=== PATIENT | female | born 1960 | race Caucasian/White ===

== ENCOUNTER → 2017-01-22 | Outpatient (REF) | payer OTHER ==
[~2017-01-22] MED LIST: AUGM875T27 PO; CIPR500T89 PO; FLAG500T PO; MULTCAP PO; PRIL40CA PO
[2017-01-22 18:28] LABS: FOLATE 7.6 NG/ML (>5.4); VITAMIN B12 LEVEL 447 PG/ML (247-911)
[2017-01-22 18:36] LABS: ALBUMIN 3.4 GM/DL (3.2-5.2); ALKALINE PHOSPHATASE 90 U/L (45-117); ALT/SGPT 19 U/L (12-78); ANION GAP 8 MEQ/L (8-16); AST/SGOT 16 U/L (15-37); BILIRUBIN,TOTAL 0.6 MG/DL (0.2-1.0); BLOOD UREA NITROGEN 13 MG/DL (7-18); CALCIUM LEVEL 8.2 MG/DL (8.5-10.1); CARBON DIOXIDE LEVEL 28 MEQ/L (21-32); CHLORIDE LEVEL 108 MEQ/L (98-107); CHOLESTEROL LEVEL 203 MG/DL (<200); CREATININE FOR GFR 0.91 MG/DL (0.55-1.02); FERRITIN 11 NG/ML (8-252); GLOMERULAR FILTRATION RATE > 60.0 (>51); GLUCOSE, FASTING 87 MG/DL (70-105); MAGNESIUM LEVEL 2.4 MG/DL (1.8-2.4); POTASSIUM SERUM 4.3 MEQ/L (3.5-5.1); SODIUM LEVEL 144 MEQ/L (136-145); TOTAL PROTEIN 6.8 GM/DL (6.4-8.2); TRIGLYCERIDES LEVEL 92 MG/DL (<150)
== END ==
LOC: M SFHCCLAY 10:39
PROVIDERS: ATTEND Nurse Practitioner Family
DX: Z98.84 Bariatric surgery status (principal); E78.4 Other hyperlipidemia; R53.83 Other fatigue

== ENCOUNTER → 2017-01-29 | Outpatient (CLI) | payer OTHER ==
--- NOTE | 2017-02-02 14:49 | REPMRS ---
Patient History The patient states she has not had a clinical breast exam in over a year. Patient had first child at age 34. Family history of breast cancer in mother at age 40. Digital Mammo Screening Bilat: January 29, 2017 - Exam #: [id number] Bilateral CC and MLO view(s) were taken. Technologist: Paris Murrell, Technologist Prior study comparison: 2011, digital bilateral screening mammo, performed at [facility]. FINDINGS: There are scattered fibroglandular densities. There has been no change in the appearance of the mammogram from the prior studies. There is a mild amount of residual fibroglandular tissue which is fairly symmetric. There is no interval development of dominant mass, architectural distortion, or clustered microcalcification suggestive of malignancy. ASSESSMENT: BI-RADS/ACR category 1 mammogram. Negative. Recommendation Routine screening mammogram in 1 year (for women over age 40). This mammogram was interpreted with the aid of an FDA-approved computer-aided dectection system. Electronically Signed By: Chau Tejeda MD 02/02/17 [id number]
== END ==
LOC: M RAD 12:53
PROVIDERS: ATTEND Advanced Practice Midwife
DX: Z12.31 Encounter for screening mammogram for malignant neoplasm of breast (principal)

== ENCOUNTER → 2017-03-14 | Outpatient (CLI) | payer OTHER ==
[2017-03-14 10:53] LABS: BASO % 0.3 % (0.0-1.0); EOS # 0.1 K/mm3 (0.0-0.50); EOS % 0.9 % (0.0-3.0); LARGE UNSTAINED CELL # 0.1 K/mm3 (0.0-0.4); LARGE UNSTAINED CELL % 1.1 % (0.0-4.0); LYMPH # 1.3 K/mm3 (1.5-4.5); MEAN CORPUSCULAR HEMOGLOBIN 29.9 pg (27.0-33.0); MEAN CORPUSCULAR HGB CONC 34.2 g/dl (32.0-36.5); MEAN CORPUSCULAR VOLUME 87.5 fl (80.0-96.0); MONO # 0.3 K/mm3 (0.0-0.8); MONO % 4.1 % (0.0-5.0); NEUTROPHILS # 4.9 K/mm3 (1.8-7.7); NEUTROPHILS % 74.5 % (36.0-66.0); PLATELET COUNT, AUTOMATED 199 k/mm3 (150-450); RED CELL DISTRIBUTION WIDTH 13.7 % (11.5-14.5); WHITE BLOOD COUNT 6.6 K/mm3 (4.0-10.0)
[2017-03-14 11:01] LABS: ALT/SGPT 20 U/L (12-78); AST/SGOT 15 U/L (15-37)
--- NOTE | 2017-03-14 11:31 | REP ---
LUMBOSACRAL SPINE SERIES: Five views of the lumbosacral spine performed. There is no compression fracture or malalignment with normal lumbar lordosis. No spondylolysis or spondylolisthesis is noted. There is mild diffuse spurring. There is not significant disc space narrowing. There is sclerosis at the posterior facet joints at L5-S1. There is mild curvature toward the left. The posterior elements appear intact. Metallic clips are seen in the abdomen. IMPRESSION: Mild degenerative changes as above. Signed by Chau Tejeda MD 03/14/2017 01:42 P
[2017-03-14 12:20] LABS: ERYTHROCYTE SEDIMENTATION RATE 22 mm/hr (0-30)
[2017-03-16 00:55] LABS: Lyme Disease IgG/IgM Antibodie <0.91 ISR (0.00-0.90); Lyme Disease IgM Ab Quantitati <0.80 index (0.00-0.79)
== END ==
LOC: M LAB 09:59
PROVIDERS: ATTEND Internal Medicine Rheumatology
DX: M06.09 Rheumatoid arthritis without rheumatoid factor, multiple sites (principal)

== ENCOUNTER → 2017-05-29 | Outpatient (CLI) | payer OTHER ==
[2017-05-29 20:17] LABS: IMMUNOGLOBULIN G 1320 MG/DL (681-1648); IMMUNOGLOBULIN M 148 MG/DL (40-230)
[2017-05-29 20:52] LABS: IMMUNOGLOBULIN A 17.5 MG/DL (70-400)
[2017-05-29 20:53] LABS: IMMUNOGLOBULIN E < 3.6 IU/ML (<100)
== END ==
LOC: M SMT 15:05
PROVIDERS: ATTEND Allergy & Immunology Allergy
DX: B99.9 Unspecified infectious disease (principal); J30.81 Allergic rhinitis due to animal (cat) (dog) hair and dander

== ENCOUNTER → 2017-08-11 | Outpatient (CLI) | payer OTHER | LOC: M LAB 11:15 | DX: J32.9 Chronic sinusitis, unspecified (principal) ==

== ENCOUNTER → 2017-12-13 | Outpatient (REF) | payer OTHER ==
[2017-12-13 18:41] LABS: BASO % 0.5 % (0.0-1.0); EOS % 0.3 % (0.0-3.0); HEMATOCRIT 43.9 % (36.0-47.0); HEMOGLOBIN 14.4 g/dl (12.0-15.5); IMMATURE GRANULOCYTE % 0.3 % (0-3.0); LYMPH # 1.6 10^3/uL (1.5-4.5); LYMPH % 24.8 % (24.0-44.0); MEAN CORPUSCULAR HEMOGLOBIN 29.6 pg (27.0-33.0); MEAN CORPUSCULAR HGB CONC 32.8 g/dl (32.0-36.5); MEAN CORPUSCULAR VOLUME 90.3 fl (80.0-96.0); MONO # 0.5 10^3/uL (0.0-0.8); MONO % 7.9 % (0.0-5.0); NEUTROPHILS # 4.2 10^3/uL (1.8-7.7); NEUTROPHILS % 66.2 % (36.0-66.0); PLATELET COUNT, AUTOMATED 260 10^3/uL (150-450); RED BLOOD COUNT 4.86 10^6/uL (4.00-5.40); RED CELL DISTRIBUTION WIDTH 13.4 % (11.5-14.5); WHITE BLOOD COUNT 6.3 10^3/uL (4.0-10.0)
[2017-12-13 18:56] LABS: ALBUMIN 3.9 GM/DL (3.2-5.2); ALBUMIN/GLOBULIN RATIO 1.03 (1.00-1.93); ALKALINE PHOSPHATASE 118 U/L (45-117); ALT/SGPT 24 U/L (12-78); ANION GAP 5 MEQ/L (8-16); AST/SGOT 17 U/L (7-37); BILIRUBIN,TOTAL 0.9 MG/DL (0.2-1.0); BLOOD UREA NITROGEN 14 MG/DL (7-18); CALCIUM LEVEL 8.5 MG/DL (8.5-10.1); CARBON DIOXIDE LEVEL 30 MEQ/L (21-32); CHLORIDE LEVEL 108 MEQ/L (98-107); CHOLESTEROL LEVEL 227 MG/DL (<200); CHOLESTEROL RISK RATIO 3.603 (<5); CREATININE FOR GFR 0.99 MG/DL (0.55-1.30); FERRITIN 29 NG/ML (8-252); GLOMERULAR FILTRATION RATE > 60.0 (>51); GLUCOSE, FASTING 92 MG/DL (70-100); HDL CHOLESTEROL 63 MG/DL (>40); IRON (FE) 107 UG/DL (50-170); LDL CHOLESTEROL 140.4 MG/DL (<100); MAGNESIUM LEVEL 2.4 MG/DL (1.8-2.4); NON-HDL-C 164 MG/DL; PERCENT SATURATION 27.2 % (13.2-45.0); POTASSIUM SERUM 4.3 MEQ/L (3.5-5.1); SODIUM LEVEL 143 MEQ/L (136-145); TOTAL IRON BINDING CAPACITY 394 UG/DL (250-450); TOTAL PROTEIN 7.7 GM/DL (6.4-8.2); TRIGLYCERIDES LEVEL 118 MG/DL (<150)
[2017-12-13 18:58] LABS: FOLATE 10.5 NG/ML (>5.4); TOTAL 25(OH) VITAMIN D 11.2 NG/ML (30.0-100.0); VITAMIN B12 LEVEL 451 PG/ML (247-911)
== END ==
LOC: M SFHCCLAY 09:30
DX: Z98.84 Bariatric surgery status (principal); E78.4 Other hyperlipidemia

== ENCOUNTER → 2017-12-13 | Outpatient (REF) | payer OTHER ==
[2017-12-13 18:42] LABS: BASO # 0.1 10^3/uL (0.0-0.2); BASO % 0.9 % (0.0-1.0); EOS % 0.4 % (0.0-3.0); HEMATOCRIT 43.3 % (36.0-47.0); IMMATURE GRANULOCYTE % 0.4 % (0-3.0); LYMPH # 1.7 10^3/uL (1.5-4.5); LYMPH % 25.4 % (24.0-44.0); MEAN CORPUSCULAR HEMOGLOBIN 29.2 pg (27.0-33.0); MEAN CORPUSCULAR HGB CONC 32.3 g/dl (32.0-36.5); MEAN CORPUSCULAR VOLUME 90.4 fl (80.0-96.0); MONO # 0.5 10^3/uL (0.0-0.8); MONO % 6.9 % (0.0-5.0); NEUTROPHILS # 4.4 10^3/uL (1.8-7.7); PLATELET COUNT, AUTOMATED 265 10^3/uL (150-450); RED BLOOD COUNT 4.79 10^6/uL (4.00-5.40); RED CELL DISTRIBUTION WIDTH 13.4 % (11.5-14.5); WHITE BLOOD COUNT 6.7 10^3/uL (4.0-10.0)
[2017-12-13 18:58] LABS: ALBUMIN 3.8 GM/DL (3.2-5.2); ALT/SGPT 25 U/L (12-78); AST/SGOT 16 U/L (7-37); C REACTIVE PROTEIN QUANTITATIV 0.31 MG/DL (0.00-0.30); CREATININE FOR GFR 0.96 MG/DL (0.55-1.30); GLOMERULAR FILTRATION RATE > 60.0 (>51); THYROID STIMULATING HORMONE 0.933 uIU/ML (0.358-3.740)
[2017-12-13 19:06] LABS: ERYTHROCYTE SEDIMENTATION RATE 20 mm/hr (0-30)
== END ==
LOC: M LABDRAWC 17:25
DX: M06.09 Rheumatoid arthritis without rheumatoid factor, multiple sites (principal); R53.83 Other fatigue

== ENCOUNTER → 2017-12-24 | Outpatient (REF) | payer OTHER | LOC: M SFHCCLAY 15:22 | DX: R19.7 Diarrhea, unspecified (principal) ==

== ENCOUNTER → 2018-01-25 | Outpatient (CLI) | payer OTHER | LOC: M RAD 14:25 | DX: M47.892 Other spondylosis, cervical region (principal) ==

== ENCOUNTER → 2018-05-01 | Outpatient (REF) | payer OTHER ==
[2018-05-01 17:11] LABS: ALBUMIN 3.6 GM/DL (3.2-5.2); ALBUMIN/GLOBULIN RATIO 1.03 (1.00-1.93); ALKALINE PHOSPHATASE 77 U/L (45-117); ALT/SGPT 28 U/L (12-78); AST/SGOT 23 U/L (7-37); BILIRUBIN,DIRECT 0.2 MG/DL (0.0-0.2); BILIRUBIN,TOTAL 1.2 MG/DL (0.2-1.0); CHOLESTEROL LEVEL 223 MG/DL (<200); HDL CHOLESTEROL 50 MG/DL (>40); LDL CHOLESTEROL 136 MG/DL (<100); NON-HDL-C 173 MG/DL; TOTAL PROTEIN 7.1 GM/DL (6.4-8.2); TRIGLYCERIDES LEVEL 183 MG/DL (<150)
[2018-05-01 17:17] LABS: TOTAL 25(OH) VITAMIN D 33.4 NG/ML (30.0-100.0)
== END ==
LOC: M SFHCCLAY 10:05
DX: E78.49 Other hyperlipidemia (principal); E56.9 Vitamin deficiency, unspecified

== ENCOUNTER → 2018-05-07 | Outpatient (CLI) | payer OTHER | LOC: M CLY 16:05 | DX: R06.02 Shortness of breath (principal) | CPT/HCPCS: 71046 ==

== ENCOUNTER → 2018-05-11 | Outpatient (CLI) | payer OTHER | LOC: M EKG 13:20 | DX: Z01.810 Encounter for preprocedural cardiovascular examination (principal); G56.22 Lesion of ulnar nerve, left upper limb | CPT/HCPCS: 93005 ==

== ENCOUNTER → 2018-06-05 | Outpatient (REF) | payer OTHER ==
[2018-06-05 17:49] LABS: ALBUMIN 3.4 GM/DL (3.2-5.2); ALBUMIN/GLOBULIN RATIO 0.89 (1.00-1.93); ALKALINE PHOSPHATASE 75 U/L (45-117); ALT/SGPT 26 U/L (12-78); AST/SGOT 17 U/L (7-37); BILIRUBIN,DIRECT 0.2 MG/DL (0.0-0.2); BILIRUBIN,TOTAL 0.8 MG/DL (0.2-1.0); CHOLESTEROL LEVEL 162 MG/DL (<200); CHOLESTEROL RISK RATIO 2.892 (<5); HDL CHOLESTEROL 56 MG/DL (>40); LDL CHOLESTEROL 79 MG/DL (<100); NON-HDL-C 106 MG/DL; TOTAL PROTEIN 7.2 GM/DL (6.4-8.2); TRIGLYCERIDES LEVEL 136 MG/DL (<150)
== END ==
LOC: M SFHCCLAY 10:06
DX: I10 Essential (primary) hypertension (principal)
CPT/HCPCS: 80076

== ENCOUNTER → 2018-06-27 | Outpatient (REF) | payer MEDICARE | LOC: M SFHCPLAZ 14:06 | PROVIDERS: ATTEND Internal Medicine Rheumatology | DX: M06.9 Rheumatoid arthritis, unspecified (principal); Z51.81 Encounter for therapeutic drug level monitoring; Z79.899 Other long term (current) drug therapy; Z53.8 Procedure and treatment not carried out for other reasons ==

== ENCOUNTER → 2018-09-02 | Outpatient (CLI) | payer MEDICARE ==
--- NOTE | 2018-09-02 14:36 | REP ---
BILATERAL HANDS, EIGHT VIEWS: HISTORY: Osteoarthritis. RIGHT HAND: There is no acute fracture or dislocation. There is narrowing of the first carpometacarpal joint space with associated osteophyte formation. The remaining joint spaces are normal in appearance. IMPRESSION: Degenerative change as described above. LEFT HAND: There is no acute fracture or dislocation. There is narrowing of the first carpometacarpal joint space with associated osteophyte formation. The remaining joint spaces are normal in appearance. IMPRESSION: Degenerative change as described above. Electronically Signed by Ochoa Gage MD 09/02/2018 02:37 P
--- NOTE | 2018-09-02 14:43 | REP ---
BILATERAL STANDING KNEES, ONE VIEW: HISTORY: Osteoarthritis. There is mild narrowing of the medial right knee joint space. The lateral right knee joint space is normal in appearance. An osteophyte is present on the right tibia. There is moderate narrowing of the medial left knee joint space. The lateral left knee joint space is normal in appearance. Osteophytes are present on the tibia. IMPRESSION: Degenerative change as described above. Electronically Signed by Ochoa Gage MD 09/02/2018 02:57 P
[2018-09-02 14:51] LABS: ALBUMIN 3.4 GM/DL (3.2-5.2); ALT/SGPT 17 U/L (12-78); BASO % 0.5 % (0.0-1.0); BILIRUBIN,TOTAL 0.8 MG/DL (0.2-1.0); BLOOD UREA NITROGEN 13 MG/DL (7-18); C REACTIVE PROTEIN QUANTITATIV 1.03 MG/DL (0.00-0.30); CALCIUM LEVEL 8.1 MG/DL (8.5-10.1); CARBON DIOXIDE LEVEL 30 MEQ/L (21-32); CHLORIDE LEVEL 108 MEQ/L (98-107); CREATININE FOR GFR 0.68 MG/DL (0.55-1.30); EOS % 0.9 % (0.0-3.0); GLOMERULAR FILTRATION RATE > 60.0 (>51); GLUCOSE, FASTING 85 MG/DL (70-100); HEMATOCRIT 40.7 % (36.0-47.0); HEMOGLOBIN 13.1 g/dl (12.0-15.5); LYMPH # 1.8 10^3/uL (1.5-4.5); LYMPH % 40.3 % (24.0-44.0); MEAN CORPUSCULAR HEMOGLOBIN 29.9 pg (27.0-33.0); MEAN CORPUSCULAR HGB CONC 32.2 g/dl (32.0-36.5); MEAN CORPUSCULAR VOLUME 92.9 fl (80.0-96.0); MONO # 0.3 10^3/uL (0.0-0.8); MONO % 7.7 % (0.0-5.0); NEUTROPHILS # 2.2 10^3/uL (1.8-7.7); NEUTROPHILS % 50.4 % (36.0-66.0); PLATELET COUNT, AUTOMATED 156 10^3/uL (150-450); POTASSIUM SERUM 4.4 MEQ/L (3.5-5.1); RED BLOOD COUNT 4.38 10^6/uL (4.00-5.40); RHEUMATOID FACTOR QUANT < 10.0 IU/ML (<15.0); SODIUM LEVEL 140 MEQ/L (136-145); TOTAL PROTEIN 7.1 GM/DL (6.4-8.2); URIC ACID 4.9 MG/DL (2.6-6.0); WHITE BLOOD COUNT 4.4 10^3/uL (4.0-10.0)
--- NOTE | 2018-09-02 15:10 | REP ---
BILATERAL HIPS, AP PELVIS, FIVE VIEWS: HISTORY: Osteoarthritis. RIGHT HIP: There is no acute fracture or dislocation. There is minimal narrowing of the joint space with associated sclerosis. IMPRESSION: Degenerative change as described above. LEFT HIP: There is no acute fracture or dislocation. There is minimal narrowing of the joint space with associated sclerosis. IMPRESSION: Degenerative change as described above. Electronically Signed by Ochoa Gage MD 09/02/2018 03:12 P
[2018-09-02 15:54] LABS: ERYTHROCYTE SEDIMENTATION RATE 33 mm/hr (0-30)
[2018-09-04 09:58] LABS: HEPATITIS B SURFACE ANTIBODY POSITIVE (POSITIVE)
[2018-09-04 10:09] LABS: HEPATITIS B SURFACE ANTIGEN NEGATIVE (NEGATIVE)
[2018-09-05 00:06] LABS: CYCLIC CITRULLINATED PEPTIDE 5 units (0-19); HEPATITIS B CORE ANTIBODY IGG Negative (Negative)
== END ==
LOC: M LAB 12:57
PROVIDERS: ATTEND Internal Medicine Rheumatology
DX: M15.9 Polyosteoarthritis, unspecified (principal); M06.9 Rheumatoid arthritis, unspecified; Z79.899 Other long term (current) drug therapy

== ENCOUNTER → 2019-01-06 | Outpatient (REF) | payer MEDICARE ==
[2019-01-06 16:50] LABS: BASO % 0.5 % (0.0-1.0); EOS % 0.5 % (0.0-3.0); HEMATOCRIT 41.1 % (36.0-47.0); HEMOGLOBIN 13.1 g/dl (12.0-15.5); LYMPH % 34.8 % (24.0-44.0); MEAN CORPUSCULAR HEMOGLOBIN 29.4 pg (27.0-33.0); MEAN CORPUSCULAR HGB CONC 31.9 g/dl (32.0-36.5); MEAN CORPUSCULAR VOLUME 92.2 fl (80.0-96.0); MONO # 0.5 10^3/uL (0.0-0.8); NEUTROPHILS # 3.2 10^3/uL (1.8-7.7); PLATELET COUNT, AUTOMATED 175 10^3/uL (150-450); RED BLOOD COUNT 4.46 10^6/uL (4.00-5.40); WHITE BLOOD COUNT 5.6 10^3/uL (4.0-10.0)
[2019-01-06 16:56] LABS: ALBUMIN 3.5 GM/DL (3.2-5.2); ALT/SGPT 21 U/L (12-78); BILIRUBIN,TOTAL 0.9 MG/DL (0.2-1.0); BLOOD UREA NITROGEN 11 MG/DL (7-18); CALCIUM LEVEL 8.6 MG/DL (8.5-10.1); CARBON DIOXIDE LEVEL 30 MEQ/L (21-32); CHLORIDE LEVEL 108 MEQ/L (98-107); CHOLESTEROL LEVEL 211 MG/DL (<200); CHOLESTEROL RISK RATIO 3.459 (<5); CREATININE FOR GFR 0.89 MG/DL (0.55-1.30); FERRITIN 13 NG/ML (8-252); GLOMERULAR FILTRATION RATE > 60.0 (>51); GLUCOSE, FASTING 82 MG/DL (70-100); HDL CHOLESTEROL 61 MG/DL (>40); IRON (FE) 83 UG/DL (50-170); LDL CHOLESTEROL 127 MG/DL (<100); MAGNESIUM LEVEL 2.2 MG/DL (1.8-2.4); NON-HDL-C 150 MG/DL; PERCENT SATURATION 21.8 % (13.2-45.0); POTASSIUM SERUM 4.2 MEQ/L (3.5-5.1); SODIUM LEVEL 143 MEQ/L (136-145); TOTAL IRON BINDING CAPACITY 380 UG/DL (250-450); TOTAL PROTEIN 7.4 GM/DL (6.4-8.2); TRIGLYCERIDES LEVEL 113 MG/DL (<150)
[2019-01-06 17:03] LABS: TOTAL 25(OH) VITAMIN D 22.8 NG/ML (30.0-100.0); VITAMIN B12 LEVEL 369 PG/ML (247-911)
[2019-01-06 17:04] LABS: FOLATE > 24.0 NG/ML (>5.4)
== END ==
LOC: M SFHCCLAY 10:16
PROVIDERS: ATTEND Nurse Practitioner Family
DX: Z98.84 Bariatric surgery status (principal); I10 Essential (primary) hypertension; E78.49 Other hyperlipidemia; E56.9 Vitamin deficiency, unspecified; Z79.899 Other long term (current) drug therapy

== ENCOUNTER → 2019-01-16 | Outpatient (REF) | payer MEDICARE | LOC: M LAB REF 16:41 | PROVIDERS: ATTEND Surgery | DX: L82.1 Other seborrheic keratosis (principal) ==

== ENCOUNTER → 2019-04-08 | Outpatient (CLI) | payer MEDICARE ==
[2019-04-08 11:41] LABS: BASO % 0.5 % (0.0-1.0); EOS % 0.7 % (0.0-3.0); HEMATOCRIT 39.7 % (36.0-47.0); LYMPH # 1.7 10^3/uL (1.5-5.0); MEAN CORPUSCULAR HEMOGLOBIN 30.3 pg (27.0-33.0); MEAN CORPUSCULAR HGB CONC 32.7 g/dl (32.0-36.5); MEAN CORPUSCULAR VOLUME 92.5 fl (80.0-96.0); MONO # 0.4 10^3/uL (0.0-0.8); NEUTROPHILS # 2.2 10^3/uL (1.5-8.5); NEUTROPHILS % 51.3 % (36.0-66.0); PLATELET COUNT, AUTOMATED 149 10^3/uL (150-450); RED BLOOD COUNT 4.29 10^6/uL (4.00-5.40); WHITE BLOOD COUNT 4.3 10^3/uL (4.0-10.0)
[2019-04-08 12:00] LABS: ALBUMIN 3.4 GM/DL (3.2-5.2); ALT/SGPT 34 U/L (12-78); C REACTIVE PROTEIN QUANTITATIV 1.53 MG/DL (0.00-0.30); CREATININE FOR GFR 0.98 MG/DL (0.55-1.30); GLOMERULAR FILTRATION RATE > 60.0 (>51)
[2019-04-08 12:43] LABS: ERYTHROCYTE SEDIMENTATION RATE 22 mm/hr (0-30)
--- NOTE | 2019-04-08 13:43 | REP ---
REASON: History of rheumatoid arthritis. COMPARISON: 09/02/2018. The prior exam is a standing bilateral AP exam. Although review of the order indicates standing bilateral knees four views of each knee were obtained and although the images are not labeled standing I suspect they were performed that way. There is tricompartmental marginal osteophytosis bilaterally. There is medial compartmental narrowing bilaterally, left greater than right. There is asymmetric patellofemoral joint space narrowing bilaterally. There is no evidence of an acute fracture. IMPRESSION: Chronic changes as described above. Electronically Signed by Rocky Burciaga DO 04/08/2019 02:16 P
== END ==
LOC: M LAB 10:52
PROVIDERS: ATTEND Internal Medicine Rheumatology
DX: M06.9 Rheumatoid arthritis, unspecified (principal); M15.0 Primary generalized (osteo)arthritis; Z79.899 Other long term (current) drug therapy; E78.49 Other hyperlipidemia; E56.9 Vitamin deficiency, unspecified

== ENCOUNTER → 2019-04-08 | Outpatient (CLI) | payer MEDICARE ==
[2019-04-08 12:03] LABS: CHOLESTEROL RISK RATIO 3.15 (<5)
[2019-04-08 12:11] LABS: TOTAL 25(OH) VITAMIN D 51.6 NG/ML (30.0-100.0)
== END ==
LOC: M LAB 10:57
PROVIDERS: ATTEND Nurse Practitioner Family
DX: E78.49 Other hyperlipidemia (principal); E56.9 Vitamin deficiency, unspecified

== ENCOUNTER → 2019-07-08 | Outpatient (REF) | payer MEDICARE ==
[2019-07-08 12:20] LABS: CHOLESTEROL RISK RATIO 2.948 (<5); TOTAL 25(OH) VITAMIN D 36.8 NG/ML (30.0-100.0)
== END ==
LOC: M SFHCCLAY 09:29
PROVIDERS: ATTEND Nurse Practitioner Family
DX: E78.49 Other hyperlipidemia (principal); E56.9 Vitamin deficiency, unspecified

== ENCOUNTER → 2019-09-10 | Outpatient (REF) | payer MEDICARE | LOC: M SFHCCLAY 11:32 | PROVIDERS: ATTEND Nurse Practitioner Family | DX: L03.316 Cellulitis of umbilicus (principal) ==

== ENCOUNTER → 2020-02-16 | Outpatient (REF) | payer MEDICARE ==
[2020-02-16 13:33] LABS: HEMATOCRIT 42.6 % (36.0-47.0); HEMOGLOBIN 13.8 g/dl (12.0-15.5); MEAN CORPUSCULAR HEMOGLOBIN 29.7 pg (27.0-33.0); MEAN CORPUSCULAR HGB CONC 32.4 g/dl (32.0-36.5); MEAN CORPUSCULAR VOLUME 91.8 fl (80.0-96.0); PLATELET COUNT, AUTOMATED 153 10^3/uL (150-450); RED BLOOD COUNT 4.64 10^6/uL (4.00-5.40); WHITE BLOOD COUNT 5.5 10^3/uL (4.0-10.0)
[2020-02-16 14:04] LABS: ALBUMIN 3.6 GM/DL (3.2-5.2); ALT/SGPT 27 U/L (12-78); BILIRUBIN,TOTAL 1.7 MG/DL (0.2-1.0); BLOOD UREA NITROGEN 9 MG/DL (7-18); CALCIUM LEVEL 8.7 MG/DL (8.8-10.2); CARBON DIOXIDE LEVEL 30 MEQ/L (21-32); CHLORIDE LEVEL 107 MEQ/L (98-107); CHOLESTEROL LEVEL 219 MG/DL (<200); CHOLESTEROL RISK RATIO 3.128 (<5); FERRITIN 54 NG/ML (8-252); GLOMERULAR FILTRATION RATE > 60.0 (>45); GLUCOSE, FASTING 65 MG/DL (70-100); HDL CHOLESTEROL 70 MG/DL (>40); IRON (FE) 109 UG/DL (50-170); LDL CHOLESTEROL 134 MG/DL (<100); MAGNESIUM LEVEL 2.1 MG/DL (1.8-2.4); NON-HDL-C 149 MG/DL; PERCENT SATURATION 36.5 % (13.2-45.0); POTASSIUM SERUM 3.9 MEQ/L (3.5-5.1); SODIUM LEVEL 141 MEQ/L (136-145); TOTAL IRON BINDING CAPACITY 299 UG/DL (250-450); TRIGLYCERIDES LEVEL 74 MG/DL (<150)
[2020-02-16 14:11] LABS: FOLATE 23.2 NG/ML (>5.4); TOTAL 25(OH) VITAMIN D 24.5 NG/ML (30.0-100.0); VITAMIN B12 LEVEL 401 PG/ML (247-911)
== END ==
LOC: M LABDRAWC 12:39
PROVIDERS: ATTEND Nurse Practitioner Family
DX: I10 Essential (primary) hypertension (principal); E78.5 Hyperlipidemia, unspecified; D50.9 Iron deficiency anemia, unspecified

== ENCOUNTER → 2020-04-26 | Outpatient (REF) | payer MEDICARE ==
[2020-04-26 11:44] LABS: BASO % 0.7 % (0.0-1.0); EOS % 0.3 % (0.0-3.0); HEMATOCRIT 45.1 % (36.0-47.0); HEMOGLOBIN 14.3 g/dl (12.0-15.5); LYMPH # 2.3 10^3/uL (1.5-5.0); LYMPH % 39.8 % (24.0-44.0); MEAN CORPUSCULAR HEMOGLOBIN 30.2 pg (27.0-33.0); MEAN CORPUSCULAR HGB CONC 31.7 g/dl (32.0-36.5); MEAN CORPUSCULAR VOLUME 95.1 fl (80.0-96.0); MONO # 0.4 10^3/uL (0.0-0.8); MONO % 7.3 % (0.0-5.0); NEUTROPHILS % 51.7 % (36.0-66.0); PLATELET COUNT, AUTOMATED 165 10^3/uL (150-450); RED BLOOD COUNT 4.74 10^6/uL (4.00-5.40); WHITE BLOOD COUNT 5.8 10^3/uL (4.0-10.0)
[2020-04-26 12:39] LABS: ALBUMIN 3.7 GM/DL (3.2-5.2); ALT/SGPT 17 U/L (12-78); BILIRUBIN,TOTAL 0.7 MG/DL (0.2-1.0); BLOOD UREA NITROGEN 9 MG/DL (7-18); CALCIUM LEVEL 9.1 MG/DL (8.8-10.2); CARBON DIOXIDE LEVEL 33 MEQ/L (21-32); CHLORIDE LEVEL 106 MEQ/L (98-107); CHOLESTEROL LEVEL 212 MG/DL (<200); CHOLESTEROL RISK RATIO 3.365 (<5); CREATININE FOR GFR 0.89 MG/DL (0.55-1.30); FERRITIN 22 NG/ML (8-252); FOLATE 21.1 NG/ML (>5.4); FREE THYROXINE INDEX 2.7 % (1.3-4.8); GLOMERULAR FILTRATION RATE > 60.0 (>45); GLUCOSE, FASTING 87 MG/DL (70-100); HDL CHOLESTEROL 63 MG/DL (>40); IRON (FE) 69 UG/DL (50-170); LDL CHOLESTEROL 125 MG/DL (<100); MAGNESIUM LEVEL 2.4 MG/DL (1.8-2.4); NON-HDL-C 149 MG/DL; PERCENT SATURATION 20.8 % (13.2-45.0); POTASSIUM SERUM 4.3 MEQ/L (3.5-5.1); SODIUM LEVEL 142 MEQ/L (136-145); T UPTAKE 34 % (30-39); THYROID STIMULATING HORMONE 0.653 uIU/ML (0.358-3.740); THYROXINE (T4) 7.9 UG/DL (4.5-12.0); TOTAL 25(OH) VITAMIN D 30.6 NG/ML (30.0-100.0); TOTAL IRON BINDING CAPACITY 332 UG/DL (250-450); TOTAL PROTEIN 7.3 GM/DL (6.4-8.2); TRIGLYCERIDES LEVEL 118 MG/DL (<150); VITAMIN B12 LEVEL 337 PG/ML (247-911)
== END ==
LOC: M SFHCCLAY 09:09
PROVIDERS: ATTEND Nurse Practitioner Family
DX: R63.4 Abnormal weight loss (principal); Z98.84 Bariatric surgery status; E78.5 Hyperlipidemia, unspecified; Z79.899 Other long term (current) drug therapy

== ENCOUNTER 2020-05-26 12:34 | Inpatient (IN) | payer MEDICARE ==
[~2020-05-26] VITALS: Ht 157.5 cm; Wt 63.5 kg
[2020-05-26] MEDS ORDERED: RA N1TAB PO (13:02)
[2020-05-26] MEDS ORDERED: ZOLP10TA2 PO (13:02)
[2020-05-26] MEDS ORDERED: GABA600T4 PO (13:02)
[2020-05-26] MEDS ORDERED: LISI-542 PO (13:02)
[2020-05-26] MEDS ORDERED: FOLI1TAB11 PO (13:02)
[2020-05-26] MEDS ORDERED: TRAM50TA2 PO (13:02)
[2020-05-26 13:54] LABS: BASO % 0.6 % (0.0-1.0); EOS % 0.5 % (0.0-3.0); HEMATOCRIT 42.1 % (36.0-47.0); HEMOGLOBIN 13.9 g/dl (12.0-15.5); LYMPH # 2.9 10^3/uL (1.5-5.0); LYMPH % 45.4 % (24.0-44.0); MEAN CORPUSCULAR HEMOGLOBIN 30.5 pg (27.0-33.0); MEAN CORPUSCULAR VOLUME 92.3 fl (80.0-96.0); MONO # 0.6 10^3/uL (0.0-0.8); NEUTROPHILS # 2.8 10^3/uL (1.5-8.5); NEUTROPHILS % 44.3 % (36.0-66.0); PLATELET COUNT, AUTOMATED 175 10^3/uL (150-450); RED BLOOD COUNT 4.56 10^6/uL (4.00-5.40); WHITE BLOOD COUNT 6.3 10^3/uL (4.0-10.0)
[2020-05-26 14:05] LABS: INR 0.94; PROTHROMBIN TIME 12.8 SECONDS (12.5-14.3)
[2020-05-26 14:06] LABS: PARTIAL THROMBOPLASTIN TIME 29.9 SECONDS (24.2-38.5)
--- NOTE | 2020-05-26 14:08 | REP ---
INDICATION: CVA - Nursing interventions must not delay CT COMPARISON: None. TECHNIQUE: Axial noncontrast images from the skull base to the thoracic inlet with coronal reformations. This CT examination was performed using the following dose reduction techniques: Automated exposure control, adjustment of mA and/or kv according to the patient's size, and use of iterative reconstruction technique. FINDINGS: Age-related atrophy and microvascular ischemic changes are appreciated. More significant low-density changes in the posterior fossa involving the left sanchez and cerebellum concerning for possible acute infarction. The ventricles and sulci are symmetric. Tejeda-white differentiation is maintained. There is no evidence for acute intracranial hemorrhage or edema. No extra-axial fluid collection. Calvarium is intact. Paranasal sinuses and mastoid air cells are clear. IMPRESSION: Age related atrophy and microvascular ischemic changes. Acute infarction involving the posterior fossa cannot be excluded. No evidence for intracranial hemorrhage or edema. <Electronically signed by Mike Adair > 05/26/20 [id number]
[2020-05-26 14:27] LABS: BLOOD UREA NITROGEN 18 MG/DL (7-18); CALCIUM LEVEL 8.2 MG/DL (8.8-10.2); CARBON DIOXIDE LEVEL 28 MEQ/L (21-32); CHLORIDE LEVEL 103 MEQ/L (98-107); CK-MB VALUE MASS 2.4 NG/ML (<3.6); CPK CREATINE PHOSPHOKINASE 129 U/L (26-192); CREATININE FOR GFR 1.08 MG/DL (0.55-1.30); GLOMERULAR FILTRATION RATE 55.1 (>45); GLUCOSE, FASTING 124 MG/DL (70-100); MB/CK RELATIVE INDEX 1.86 (< OR =4); POTASSIUM SERUM 3.7 MEQ/L (3.5-5.1); SODIUM LEVEL 137 MEQ/L (136-145); TROPONIN I < 0.02 NG/ML (< 0.10)
--- NOTE | 2020-05-26 14:29 | REP ---
INDICATION: CVA COMPARISON: 05/07/2018 TECHNIQUE: Portable AP view of the chest FINDINGS: The mediastinum and cardiac silhouette are stable and within normal limits for portable technique. The lung burks are clear without acute consolidation, effusion, or pneumothorax. Skeletal structures are intact. IMPRESSION: No acute cardiopulmonary process appreciated. <Electronically signed by Mike Adair > 05/26/20 [id number]
[2020-05-26] MEDS ORDERED: MORPHINE 4 MG/ML 1ML VIAL/SYRINGE (J2270) IV ONE (15:00)
[2020-05-26] MEDS ORDERED: METOCLOPRAMIDE INJ 10MG/2ML VIAL (J2765 PER 1) IV ONE (15:00)
[2020-05-26] MEDS ORDERED: CVS1CAP2 PO (15:57)
[2020-05-26] MEDS ORDERED: CLOPIDOGREL 75 MG TAB PO ONE (16:15)
--- NOTE | 2020-05-26 19:27 | HPEPDOC ---
[facility] Medical History & Physical Date of Admission May 26, 2020 Date of Service: May 26, 2020 History and Physical CHIEF COMPLAINT: Cannot speak HISTORY OF PRESENT ILLNESS: This is a 60-year-old female past medical history of hypertension, rheumatoid arthritis and fibromyalgia who follows up with neurology Dr. Sidhu for possible memory loss/dementia. Patient says that 2 days ago on Sunday she had a one to one and half hour episode where she was only mumbling and not able to speak well. She didn't think much of it and ignored it but then it happened again the very next day on Sunday (yesterday) where she also had a period of about one hour where she was mumbling and not able to be coherent it also resolved spontaneously. During this time patient remembers the entire events with no time missing. She's never had such an event happen before and there was no associated weakness. She didn't endorse that during those times she was feeling very stressed. She tells me that in February she lost her son and her other children have been: Her constantly to cope and she feels like she was panicky and anxious and overwhelmed during the episodes when she couldn't speak and was mumbling. She does not have a prior history of stroke although she does have a history of high blood pressure. Currently she is complaining of a mild headache which she is attributing to the stress. When asked why she didn't present to the hospital earlier given her severe and concerning symptoms she said she wasn't too worried about it. PAST MEDICAL HISTORY: Hypertension Rheumatoid arthritis Fibromyalgia PAST SURGICAL HISTORY: Gastric bypass surgery Partial hysterectomy Cholecystectomy Left knee meniscus repair surgery SOCIAL HISTORY: Denies alcohol use Denies tobacco use Denies illicit drug use FAMILY HISTORY: Mother has a history of breast cancer Father has a history of Alzheimer's disease ALLERGIES: Please see below. REVIEW OF SYSTEMS: 10 point review of systems complete all negative otherwise stated in HPI HOME MEDICATIONS: Please see below. PHYSICAL EXAMINATION: Constitutional: Awake and alert, in no apparent distress ENT: Sclera are clear. Mucosa is moist. Respiratory: Lungs CTA bilaterally. No respiratory distress. No use of accessory muscles. Cardiovascular: RRR S1 and S2 are normal, no murmur Gastrointestinal: Abdomen is soft, non distended, non tender, BS present. Musculoskeletal: No edema. No joint deformities. Skin: Warm, dry mental status: The patient is awake, alert, oriented to name, location, and date. Cranial nerves: Pupils are equal, round, and reactive to light. Extraocular muscles intact. Visual burks full bilaterally. Smile is symmetrical. Tongue is midline. Intact sensation on both sides of face. Motor: At least 4+/5 in both upper and lower extremities without any drifting. Sensory: Intact to sensation bilaterally. Reflexes: Symmetrical, non-hyperreflexic. Not pathological. Coordination: Gspwhl-ke-iuvz grossly intact. LABORATORY DATA: See below. IMAGING: CT head without contrast IMPRESSION: Age related atrophy and microvascular ischemic changes. Acute infarction involving the posterior fossa cannot be excluded. No evidence for intracranial hemorrhage or edema. MICROBIOLOGY: Please see below. ASSESSMENT/PLAN This is a 60-year-old female past medical history of hypertension, rheumatoid arthritis and fibromyalgia reports periods of dysarthria admitted to medical unit for stroke workup. # Possible transient ischemic attack stroke workup initiated: CT head negative for intracranial hemorrhage or edema. - Plavix daily (allergic to ASA), Atorvastatin 40 mg QHS - MRI brain pending - Carotid, LE duplex ultrasound pending - Passed bedside swallow evaluation - Neurology Dr. Luther aware patient is here for stroke workup. - PT/OT - Fall & seizure precautions # Hypertension: Currently normotensive. Monitor and titrate. # Rheumatoid arthritis and fibromyalgia: Continue home meds. # DVT prophylaxis: Heparin A Yousef Hospitalist Vital Signs Vital Signs Date Time Temp Pulse Resp B/P (MAP) Pulse Ox O2 Delivery O2 Flow Rate FiO2 05/26/20 18:50 59 97 05/26/20 18:45 16 113/58 (76) 05/26/20 15:41 Room Air 05/26/20 12:34 97.7 Laboratory Data Labs 24H Laboratory Tests 2 05/26/20 13:22: Immature Granulocyte % (Auto) 0.2, Neutrophils (%) (Auto) 44.3, Lymphocytes (%) (Auto) 45.4H, Monocytes (%) (Auto) 9.0H, Eosinophils (%) (Auto) 0.5, Basophils (%) (Auto) 0.6, Neutrophils # (Auto) 2.8, Lymphocytes # (Auto) 2.9, Monocytes # (Auto) 0.6, Eosinophils # (Auto) 0.0, Basophils # (Auto) 0.0, Nucleated Red Blood Cells % (auto) 0.0, Prothrombin Time 12.8, Prothromb Time International Ratio 0.94, Activated Partial Thromboplast Time 29.9, Anion Gap 6L, Glomerular Filtration Rate 55.1, Calcium Level 8.2L, Total Creatine Kinase 129, Creatine Kinase MB 2.4, Creatine Kinase MB Relative Index 1.86, Troponin I < 0.02 05/26/20 16:39: Coronavirus (COVID-19)(PCR) NEGATIVE CBC/BMP Laboratory Tests 05/26/20 13:22 Home Medications Scheduled Folic Acid (Folic Acid) 1 Mg Tablet, 1 MG PO DAILY Gabapentin (Gabapentin) 600 Mg Tablet, 600 MG PO BID Lactobacillus Combo No.10 (Probiotic) 1 Each Capsule, 1 CAP PO DAILY Lisinopril (Lisinopril) 5 Mg Tablet, 5 MG PO DAILY Magnesium (Magnesium) 250 Mg Tablet, 250 MG PO DAILY Tramadol HCl (Tramadol HCl) 50 Mg Tablet, 50 MG PO BID Zolpidem Tartrate (Zolpidem Tartrate) 10 Mg Tablet, 10 MG PO QHS Allergies Coded Allergies: aspirin (Verified Allergy, Intermediate, swelling, 05/26/20) codeine (Verified Adverse Reaction, Mild, gi upset, 05/26/20) A-FIB/CHADSVASC A-FIB History Current/History of A-Fib/PAF?: No MONA RAM MD May 26, 2020 19:27
[2020-05-26] MEDS ORDERED: ATORVASTATIN 20 MG TAB PO SCH (21:00)
[2020-05-26] MEDS: GABAPENTIN 300 MG CAP PO SCH (21:50)
[2020-05-26] MEDS: traMADol 50 MG TAB PO SCH (21:51)
--- NOTE | 2020-05-26 22:44 | REPVR ---
PROCEDURE INFORMATION: Exam: MR Head Without Contrast Exam date and time: 05/26/2020 9:33 PM Age: 60 years old Clinical indication: Dizziness; Additional info: TIA TECHNIQUE: Imaging protocol: MR of the head without contrast. COMPARISON: CT Head without contrast 2020-05-26 13:45 FINDINGS: Brain: Minimal chronic FLAIR hyperintense white matter disease. No brain parenchymal diffusion restriction to suggest acute ischemia or infarction. No midline shift, mass, fluid collection, or evidence of acute hemorrhage. Cerebral ventricles: Bilateral choroid plexus xanthogranulomatous. Additional probable xanthogranulomatous within the body of the left lateral ventricle. Bones/joints: Unremarkable. Paranasal sinuses: Normal as visualized. No acute sinusitis. Mastoid air cells: Normal as visualized. No mastoid effusion. Orbits: Unremarkable. Soft tissues: Unremarkable. IMPRESSION: No acute intracranial abnormality. Electronically signed by: Jair Hammonds On 05/26/2020 22:44:47 PM
[2020-05-27] MEDS ORDERED: ACETAMINOPHEN TAB 650MG DOSE (2X325MG) PO PRN (05:45)
--- NOTE | 2020-05-27 06:19 | REPVR ---
PROCEDURE INFORMATION: Exam: US Duplex Lower Extremity Veins, Bilateral Exam date and time: 05/27/2020 4:06 AM Age: 60 years old Clinical indication: Screening exam; Stroke workup TECHNIQUE: Imaging protocol: Real-time duplex ultrasound of the extremities with 2-D arce scale, color Doppler flow and spectral waveform analysis with image documentation. Complete exam focused on the bilateral lower extremity veins. COMPARISON: No relevant prior studies available. FINDINGS: Right deep veins: Unremarkable. The common femoral, femoral, proximal profunda femoral and popliteal veins are patent without thrombus. Normal Doppler waveforms. Normal compressibility and/or augmentation response. Right superficial veins: Saphenofemoral junction is patent without thrombus. Left deep veins: Unremarkable. The common femoral, femoral, proximal profunda femoral and popliteal veins are patent without thrombus. Normal Doppler waveforms. Normal compressibility and/or augmentation response. Left superficial veins: Saphenofemoral junction is patent without thrombus. Soft tissues: Unremarkable. IMPRESSION: No evidence of deep vein thrombosis. Electronically signed by: Kelly Parrish On 05/27/2020 06:20:10 AM
--- NOTE | 2020-05-27 06:25 | REPVR ---
PROCEDURE INFORMATION: Exam: US Duplex Bilateral Extracranial Arteries Exam date and time: 05/27/2020 4:06 AM Age: 60 years old Clinical indication: Screening exam; Additional info: Stroke workup TECHNIQUE: Imaging protocol: Real-time Duplex ultrasound scan of the bilateral carotid and vertebral arteries combining arce scale, color Doppler and spectral waveform analysis. Bilateral exam. COMPARISON: CT Head without contrast 05/26/2020 1:45 PM FINDINGS: Right common carotid artery: Unremarkable. No occlusion or stenosis. Waveforms are normal. The peak systolic velocity is 80 cm/s. Right internal carotid artery: Unremarkable. No occlusion or stenosis. Waveforms are normal. The peak systolic velocity is 69 cm/s. Right ICA/CCA ratio: Within normal limits at 0.8. Right external carotid artery: No stenosis in the origin. The peak systolic velocity is 50 cm/s. Right vertebral artery: Unremarkable. Antegrade flow. The peak systolic velocity is 55 cm/s. Left common carotid artery: Unremarkable. No occlusion or stenosis. Waveforms are normal. The peak systolic velocity is 91 cm/s. Left internal carotid artery: Unremarkable. No occlusion or stenosis. Waveforms are normal. The peak systolic velocity is 69 cm/s. Left ICA/CCA ratio: Within normal limits at 0.7. Left external carotid artery: No stenosis in the origin. The peak systolic velocity is 56 cm/s. Left vertebral artery: Unremarkable. Antegrade flow. The peak systolic velocity is 56 cm/s. IMPRESSION: No significant plaque formation. No carotid arterial stenosis. REFERENCES: SRU CRITERIA. The degree of internal carotid artery stenosis is based on criteria defined by the Society of Radiologists in Ultrasound (SRU). Normal is no stenosis. Mild is less than 50% stenosis. Moderate is 50-69% stenosis. Severe is greater than 69% stenosis to near occlusion. Near occlusion is a markedly narrowed lumen. Total occlusion is no detectable patent lumen. Electronically signed by: Kelly Parrish On 05/27/2020 06:25:54 AM
[2020-05-27 06:37] LABS: HEMATOCRIT 40.9 % (36.0-47.0); HEMOGLOBIN 12.9 g/dl (12.0-15.5); MEAN CORPUSCULAR HEMOGLOBIN 29.3 pg (27.0-33.0); MEAN CORPUSCULAR HGB CONC 31.5 g/dl (32.0-36.5); PLATELET COUNT, AUTOMATED 140 10^3/uL (150-450)
[2020-05-27 07:04] LABS: BLOOD UREA NITROGEN 13 MG/DL (7-18); CALCIUM LEVEL 8.9 MG/DL (8.8-10.2); CARBON DIOXIDE LEVEL 33 MEQ/L (21-32); CHLORIDE LEVEL 102 MEQ/L (98-107); CREATININE FOR GFR 0.92 MG/DL (0.55-1.30); GLOMERULAR FILTRATION RATE > 60.0 (>45); GLUCOSE, FASTING 85 MG/DL (70-100); POTASSIUM SERUM 4.1 MEQ/L (3.5-5.1); SODIUM LEVEL 137 MEQ/L (136-145)
[2020-05-27] MEDS: GABAPENTIN 300 MG CAP PO SCH (07:52)
[2020-05-27] MEDS: traMADol 50 MG TAB PO SCH (07:53)
[2020-05-27 08:00] VITALS: BP 124/60
[2020-05-27] MEDS ORDERED: CLOPIDOGREL 75 MG TAB PO SCH (09:00)
[2020-05-27] MEDS ORDERED: FOLIC ACID 1 MG TAB PO SCH (09:00)
[2020-05-27] MEDS ORDERED: HEPARIN SOD (PORCINE) 5000UNITS/ML 1ML VIAL/SYRINGE SQ SCH (09:00)
[2020-05-27 10:32] VITALS: BP 136/70
[2020-05-27 10:38] VITALS: BP 136/68
--- NOTE | 2020-05-27 11:37 | DS.PDOC ---
Discharge Summary General Date of Admission May 26, 2020 at 19:37 Date of Discharge 05/27/2020 Discharge Summary PROCEDURES PERFORMED DURING STAY: Echo, MRI head, CT head, US doppler LE, US carotids. ADMITTING DIAGNOSES: 1. Tia(Transient Ischemic Attack). DISCHARGE DIAGNOSES: 1. Tia(Transient Ischemic Attack). COMPLICATIONS/CHIEF COMPLAINT: speech difficulty HISTORY OF PRESENT ILLNESS: From H&P: This is a 60-year-old female past medical history of hypertension, rheumatoid arthritis and fibromyalgia who follows up with neurology Dr. Sidhu for possible memory loss/dementia. Patient says that 2 days ago on Sunday she had a one to one and half hour episode where she was only mumbling and not able to speak well. She didn't think much of it and ignored it but then it happened again the very next day on Sunday (yesterday) where she also had a period of about one hour where she was mumbling and not able to be coherent it also resolved spontaneously. During this time patient remembers the entire events with no time missing. She's never had such an event happen before and there was no associated weakness. She didn't endorse that during those times she was feeling very stressed. She tells me that in February she lost her son and her other children have been: Her constantly to cope and she feels like she was panicky and anxious and overwhelmed during the episodes when she couldn't speak and was mumbling. She does not have a prior history of stroke although she does have a history of high blood pressure. Currently she is complaining of a mild headache which she is attributing to the stress. When asked why she didn't present to the hospital earlier given her severe and concerning symptoms she said she wasn't too worried about it. HOSPITAL COURSE: This is a 60-year-old female past medical history of hypertension, rheumatoid arthritis and fibromyalgia reports periods of dysarthria admitted to medical unit for stroke workup. # Possible transient ischemic attack stroke workup initiated: CT head negative for intracranial hemorrhage or edema. - ASA 81 mg, Atorvastatin 40 mg QHS - MRI brain negative - Carotid, LE duplex ultrasound negative - Echo w bubble. Bubble study weakly positive per but otherwise relatively normal study per verbal read from Dr Cali credit investigator - Passed bedside swallow evaluation - Neurology Dr. Luther aware patient is here for stroke workup. - PT/OT cleared for discharge - Fall & seizure precautions # Hypertension: Blood pressure has been fairly well controlled during her hospitalization without the need of antihypertensives. Will discharge patient home without antihypertensives and have her follow up with her primary care doctor. # Rheumatoid arthritis and fibromyalgia: Continue home meds. DISCHARGE MEDICATIONS: Please see below. ALLERGIES: Please see below. PHYSICAL EXAMINATION ON DISCHARGE: Constitutional: Awake and alert, in no apparent distress ENT: Sclera are clear. Mucosa is moist. Respiratory: Lungs CTA bilaterally. No respiratory distress. No use of accessory muscles. Cardiovascular: RRR S1 and S2 are normal, no murmur Gastrointestinal: Abdomen is soft, non distended, non tender, BS present. Musculoskeletal: No edema. No joint deformities. Skin: Warm, dry mental status: The patient is awake, alert, oriented to name, location, and date. Cranial nerves: Pupils are equal, round, and reactive to light. Extraocular muscles intact. Visual burks full bilaterally. Smile is symmetrical. Tongue is midline. Intact sensation on both sides of face. Motor: At least 4+/5 in both upper and lower extremities without any drifting. Sensory: Intact to sensation bilaterally. Reflexes: Symmetrical, non-hyperreflexic. Not pathological. Coordination: [id number]-ry-[id number] grossly intact. LABORATORY DATA: Please see below. IMAGING: CT head without contrast IMPRESSION: Age related atrophy and microvascular ischemic changes. Acute infarction involving the posterior fossa cannot be excluded. No evidence for intracranial hemorrhage or edema. Lower extremity venous Doppler ultrasound:No evidence of deep vein thrombosis. Bilateral carotid ultrasound:No significant plaque formation. No carotid arterial stenosis. Brain MRI impressions:No acute intracranial abnormality. PROGNOSIS: good ACTIVITY: [As tolerated]. DIET: regular diet DISPOSITION: home DISCHARGE INSTRUCTIONS: Please follow up with your primary care physician within 1 week from discharge. If you do not have one, please follow up with us to schedule an appointment. Please keep all of your follow up appointments. Please call central to book your appointments with hospital specialists. Please take all your medications as prescribed. Please call/come to Clinic or go to the Emergency Department if - Temp >101, intractable Nausea/Vomiting, Diarrhea, Mouth sores, Headaches, Altered mental status, Seizures, sudden onset of swelling, bleeding, shortness of breath or chest pain. ITEMS TO FOLLOWUP ON ON OUTPATIENT: Follow-up with primary care doctor within 3-5 days of discharge DISCHARGE CONDITION: [Stable]. TIME SPENT ON DISCHARGE: Greater than 40 minutes. Vital Signs/I&Os Vital Signs Date Time Temp Pulse Resp B/P (MAP) Pulse Ox O2 Delivery O2 Flow Rate FiO2 05/27/20 10:38 57 136/68 05/27/20 10:32 97.0 18 98 Room Air Laboratory Data Labs 24H Laboratory Tests 2 05/26/20 13:22: Immature Granulocyte % (Auto) 0.2, Neutrophils (%) (Auto) 44.3, Lymphocytes (%) (Auto) 45.4H, Monocytes (%) (Auto) 9.0H, Eosinophils (%) (Auto) 0.5, Basophils (%) (Auto) 0.6, Neutrophils # (Auto) 2.8, Lymphocytes # (Auto) 2.9, Monocytes # (Auto) 0.6, Eosinophils # (Auto) 0.0, Basophils # (Auto) 0.0, Nucleated Red Blood Cells % (auto) 0.0, Prothrombin Time 12.8, Prothromb Time International Ratio 0.94, Activated Partial Thromboplast Time 29.9, Anion Gap 6L, Glomerular Filtration Rate 55.1, Calcium Level 8.2L, Total Creatine Kinase 129, Creatine Kinase MB 2.4, Creatine Kinase MB Relative Index 1.86, Troponin I < 0.02 05/26/20 16:39: Coronavirus (COVID-19)(PCR) NEGATIVE 05/27/20 06:25: Nucleated Red Blood Cells % (auto) 0.0, Anion Gap 2L, Glomerular Filtration Rate > 60.0, Calcium Level 8.9 CBC/BMP Laboratory Tests 05/26/20 13:22 05/27/20 06:25 Discharge Medications Scheduled Folic Acid (Folic Acid) 1 Mg Tablet, 1 MG PO DAILY, (Reported) Gabapentin (Gabapentin) 600 Mg Tablet, 600 MG PO BID, (Reported) Lactobacillus Combo No.10 (Probiotic) 1 Each Capsule, 1 CAP PO DAILY, (Reported) Lisinopril (Lisinopril) 5 Mg Tablet, 5 MG PO DAILY, (Reported) Magnesium (Magnesium) 250 Mg Tablet, 250 MG PO DAILY, (Reported) Tramadol HCl (Tramadol HCl) 50 Mg Tablet, 50 MG PO BID, (Reported) Zolpidem Tartrate (Zolpidem Tartrate) 10 Mg Tablet, 10 MG PO QHS, (Reported) Allergies Coded Allergies: aspirin (Verified Allergy, Intermediate, swelling, 05/26/20) codeine (Verified Adverse Reaction, Mild, gi upset, 05/26/20) MONA RAM MD May 27, 2020 11:36
[2020-05-27] MEDS ORDERED: ATOR1TAB21 PO (11:39)
[2020-05-27] MEDS ORDERED: CLOP75TA2 PO (11:39)
--- NOTE | 2020-05-27 12:11 | ECGEPIP ---
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
--- NOTE | 2020-05-28 06:54 | ECHO ---
DATE OF PROCEDURE: 05/27/2020 Age: 60 Gender: Female Height: 155 cm Weight: 65 kg REFERRING PHYSICIAN: Gaurav Goldman MD INDICATION: Transient ischemic attack (TIA) MEASUREMENTS: IVS 0.9 LV 4.1 LVPW 0.8 LA 4.5 Aorta 3.0 RV 2.4 IVC 1.9 Mitral E wave velocity 73, A wave 75 E prime septal 6.1 E prime lateral 8.3 FINDINGS: The study is of good technical quality. The patient is in sinus rhythm. Left ventricle is normal size and systolic function, estimated Ejection fraction (EF) around 65%. I do not appreciate any segmental wall motion abnormalities. Right ventricle also appears to be normal size and systolic function. Left atrium is moderately enlarged. Right atrium appears to be normal size. All four cardiac valves were reasonable well seen and appear normal. No pericardial effusion is noted. Inferior vena cava is in the upper limits of normal size, but completely collapses with inspiration indicative of likely normal central venous pressure. Aortic root and aortic arch appear normal. Doppler interrogation reveals no aortic stenosis or insufficiency. Same applies for remaining 3 cardiac valves. Mitral inflow pattern and tissue Doppler imaging of mitral annulus revealed grade 1 diastolic dysfunction. Injection of agitated saline through peripheral vein indicates the presence of right to left intracardiac shunt. The bubble study is weakly positive. CONCLUSIONS: 1. Study is of good technical quality, underlying sinus rhythm 2. Normal LV size and systolic function, grade 1 diastolic dysfunction. 3. No significant valvular disease. 4. Normal central venous pressure. Unable to estimate pulmonary artery pressure, but no signs to suggest pulmonary hypertension. 5. Injection of agitated saline through peripheral IV leads to crossing of the contrast into the left ventricle. Only few bubbles appear in LV and consequently the study is only weakly positive. MTDD
--- NOTE | 2020-05-28 07:57 | ECGEPIP ---
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
== END 2020-05-27 13:30 | disposition home or self-care (01) | DRG 69 ==
LOC: M ED 12:34 → M ED INP 19:37 → ENRESERV 05-27 06:50 → M PCU 05-27 10:28
PROVIDERS: ADMIT Family Medicine; ATTEND Family Medicine
DX: G45.9 Transient cerebral ischemic attack, unspecified (principal); I10 Essential (primary) hypertension; M06.9 Rheumatoid arthritis, unspecified; M79.7 Fibromyalgia; Z98.84 Bariatric surgery status; Z90.49 Acquired absence of other specified parts of digestive tract; Z79.891 Long term (current) use of opiate analgesic; Z79.899 Other long term (current) drug therapy; Z88.5 Allergy status to narcotic agent; Z88.6 Allergy status to analgesic agent; Z20.828 Contact with and (suspected) exposure to other viral communicable diseases

== ENCOUNTER → 2020-06-15 | Outpatient (CLI) | payer MEDICARE ==
[~2020-06-15] MED LIST changes: +ATOR1TAB21 PO; +CLOP75TA2 PO; +CVS1CAP2 PO; +FOLI1TAB11 PO; +GABA600T4 PO; +GASTROGRAFIN SOLUTION 30ML (Q9963) As Ordered ONE; +ISOVUE-370 76% 100ML VIAL As Ordered ONE; +LISI-542 PO; +RA N1TAB PO; +TRAM50TA2 PO; +ZOLP10TA2 PO
--- NOTE | 2020-06-16 08:39 | REP ---
INDICATION: WEIGHT LOSS, CONSTIPATION, ABD PAIN. COMPARISON: None TECHNIQUE: Axial contrast-enhanced images from the lung bases to the pubic symphysis using oral and 100 cc Isovue 370 intravenous contrast material. Precontrast images of the abdomen obtained along with coronal and sagittal reformations. This CT examination was performed using the following dose reduction techniques: Automated exposure control, adjustment of mA and/or kv according to the patient's size, and the use of iterative reconstruction technique. FINDINGS: Evidence for prior cholecystectomy with presumed compensatory intrahepatic and extrahepatic biliary ductal dilatation. No focal hepatic lesions are identified. Spleen, pancreas, bilateral adrenal glands and kidneys are normal. Evidence for prior bariatric surgery noted. There is no evidence for bowel obstruction or acute inflammatory process. Pelvis demonstrates normal bladder and prior hysterectomy. No pelvic fluid or ascites. No free air. No adenopathy. Abdominal aorta and vasculature normal. Surrounding musculoskeletal structures demonstrate age-related changes without acute osseous abnormality. Lung bases are essentially clear. IMPRESSION: 1. No acute abdominopelvic pathology appreciated. 2. Intrahepatic and extrahepatic biliary ductal dilatation likely related to cholecystectomy. 3. Prior hysterectomy, bariatric surgery and appendectomy. 4. No ascites, focal inflammatory stranding, adenopathy, or free air. <Electronically signed by Mike Adair > 06/16/20 [id number]
== END ==
LOC: M RAD 15:38
PROVIDERS: ATTEND Physician Assistant
DX: R10.84 Generalized abdominal pain (principal); K59.09 Other constipation; R63.4 Abnormal weight loss; Z90.49 Acquired absence of other specified parts of digestive tract
CPT/HCPCS: 74178; Q9963; Q9967

== ENCOUNTER → 2020-08-12 | Outpatient (REF) | payer MEDICARE ==
[~2020-08-12] MED LIST changes: -GASTROGRAFIN SOLUTION 30ML (Q9963) As Ordered ONE; -ISOVUE-370 76% 100ML VIAL As Ordered ONE; -LISI-542 PO; +LISI-898 PO
== END ==
LOC: M SFHCCLAY 11:55
PROVIDERS: ATTEND Family Medicine
DX: R30.0 Dysuria (principal)

== ENCOUNTER → 2020-08-12 | Outpatient (REF) | payer MEDICARE ==
[2020-08-12 17:43] LABS: FOLATE > 24.0 NG/ML; RHEUMATOID FACTOR QUANT < 10.0 IU/ML (<15.0); THYROID STIMULATING HORMONE 0.833 uIU/ML (0.358-3.740); TOTAL PROTEIN 6.9 GM/DL (6.4-8.2); VITAMIN B12 LEVEL 325 PG/ML
[2020-08-13 10:57] LABS: ALBUMIN % 55.2 % (55.8-66.1); ALPHA-1-GLOBULIN % 4.2 % (2.9-4.9); ALPHA-2-GLOBULINS % 11.2 % (7.1-11.8)
[2020-08-13 10:58] LABS: ALBUMIN 3.81 GM/DL (3.29-5.55); ALPHA-1-GLOBULINS 0.29 GM/DL (0.17-0.41); ALPHA-2-GLOBULINS 0.77 GM/DL (0.42-0.99); BETA-1-GLOBULINS 0.39 GM/DL (0.28-0.60); BETA-1-GLOBULINS % 5.7 % (4.7-7.2); BETA-2-GLOBULINS 0.26 GM/DL (0.19-0.55); BETA-2-GLOBULINS % 3.8 % (3.2-6.5); GAMMA GLOBULIN % 19.9 % (11.1-18.8); GAMMA GLOBULINS 1.37 GM/DL (0.65-1.58)
== END ==
LOC: M LABDRAWC 16:14
PROVIDERS: ATTEND Physician Assistant Medical
DX: G45.9 Transient cerebral ischemic attack, unspecified (principal); G31.84 Mild cognitive impairment of uncertain or unknown etiology

== ENCOUNTER → 2021-09-06 | Outpatient (REF) | payer MEDICARE ==
[~2021-09-06] MED LIST changes: -LISI-898 PO; +LISI5TAB11 PO
[2021-09-06 16:09] LABS: HEMATOCRIT 43.4 % (36.0-47.0); HEMOGLOBIN 13.6 g/dl (12.0-15.5); MEAN CORPUSCULAR HEMOGLOBIN 28.3 pg (27.0-33.0); MEAN CORPUSCULAR HGB CONC 31.3 g/dl (32.0-36.5); MEAN CORPUSCULAR VOLUME 90.4 fl (80.0-96.0); PLATELET COUNT, AUTOMATED 206 10^3/uL (150-450); WHITE BLOOD COUNT 5.7 10^3/uL (4.0-10.0)
[2021-09-06 16:15] LABS: ALBUMIN 3.5 GM/DL (3.2-5.2); ALT/SGPT 18 U/L (12-78); BILIRUBIN,TOTAL 0.9 MG/DL (0.2-1.0); BLOOD UREA NITROGEN 9 MG/DL (7-18); CALCIUM LEVEL 9.1 MG/DL (8.8-10.2); CARBON DIOXIDE LEVEL 33 MEQ/L (21-32); CHLORIDE LEVEL 107 MEQ/L (98-107); CHOLESTEROL LEVEL 158 MG/DL (<200); GLOMERULAR FILTRATION RATE > 60.0 (>45); GLUCOSE, FASTING 99 MG/DL (70-100); HDL CHOLESTEROL 79 MG/DL (>40); IRON (FE) 104 UG/DL (50-170); LDL CHOLESTEROL 55 MG/DL (<100); NON-HDL-C 79 MG/DL; PERCENT SATURATION 28.3 % (13.2-45.0); POTASSIUM SERUM 4.5 MEQ/L (3.5-5.1); SODIUM LEVEL 142 MEQ/L (136-145); TOTAL 25(OH) VITAMIN D 18.2 NG/ML (30.0-100.0); TOTAL IRON BINDING CAPACITY 368 UG/DL (250-450); TOTAL PROTEIN 7.2 GM/DL (6.4-8.2); TRIGLYCERIDES LEVEL 119 MG/DL (<150); VITAMIN B12 LEVEL 505 PG/ML (247-911)
[2021-09-06 16:38] LABS: HEMATOCRIT 43.4 % (36.0-47.0)
== END ==
LOC: M SFHCCLAY 12:12
PROVIDERS: ATTEND Family Medicine
DX: E78.5 Hyperlipidemia, unspecified (principal); Z98.84 Bariatric surgery status; D50.9 Iron deficiency anemia, unspecified

== ENCOUNTER → 2021-09-06 | Outpatient (CLI) | payer MEDICARE | LOC: M CLY 13:27 | PROVIDERS: ATTEND Physician Assistant | DX: J40 Bronchitis, not specified as acute or chronic (principal) ==

== ENCOUNTER → 2021-12-08 | Outpatient (REF) | payer MEDICARE ==
[2021-12-08 17:51] LABS: BLOOD UREA NITROGEN 9 MG/DL (7-18); CALCIUM LEVEL 9.2 MG/DL (8.8-10.2); CARBON DIOXIDE LEVEL 29 MEQ/L (21-32); CHLORIDE LEVEL 110 MEQ/L (98-107); CREATININE FOR GFR 0.81 MG/DL (0.55-1.30); GLOMERULAR FILTRATION RATE > 60.0 (>45); GLUCOSE, FASTING 87 MG/DL (70-100); POTASSIUM SERUM 4.4 MEQ/L (3.5-5.1); SODIUM LEVEL 145 MEQ/L (136-145)
== END ==
LOC: M SFHCCLAY 14:08
PROVIDERS: ATTEND Family Medicine
DX: I11.9 Hypertensive heart disease without heart failure (principal)

== ENCOUNTER → 2022-03-07 | Outpatient (REF) | payer MEDICARE ==
[2022-03-07 15:40] LABS: BASO % 0.5 % (0.0-1.0); EOS # 0.1 10^3/uL (0.0-0.5); EOS % 1.2 % (0.0-3.0); HEMATOCRIT 43.4 % (36.0-47.0); HEMOGLOBIN 13.3 g/dl (12.0-15.5); LYMPH # 2.2 10^3/uL (1.5-5.0); LYMPH % 32.8 % (24.0-44.0); MEAN CORPUSCULAR HEMOGLOBIN 29.1 pg (27.0-33.0); MEAN CORPUSCULAR HGB CONC 30.6 g/dl (32.0-36.5); MONO # 0.5 10^3/uL (0.0-0.8); MONO % 7.9 % (2.0-8.0); NEUTROPHILS # 3.8 10^3/uL (1.5-8.5); NEUTROPHILS % 57.3 % (36.0-66.0); PLATELET COUNT, AUTOMATED 210 10^3/uL (150-450); RED BLOOD COUNT 4.57 10^6/uL (4.00-5.40); WHITE BLOOD COUNT 6.6 10^3/uL (4.0-10.0)
[2022-03-07 16:22] LABS: ALBUMIN 3.6 GM/DL (3.2-5.2); ALT/SGPT 18 U/L (12-78); BILIRUBIN,TOTAL 0.7 MG/DL (0.2-1.0); BLOOD UREA NITROGEN 9 MG/DL (7-18); CALCIUM LEVEL 9.2 MG/DL (8.8-10.2); CARBON DIOXIDE LEVEL 30 MEQ/L (21-32); CHLORIDE LEVEL 105 MEQ/L (98-107); CHOLESTEROL LEVEL 161 MG/DL (<200); CHOLESTEROL RISK RATIO 2.439 (<5); CREATININE FOR GFR 0.84 MG/DL (0.55-1.30); FREE T4 0.91 NG/DL (0.76-1.46); GLOMERULAR FILTRATION RATE > 60.0 (>45); GLUCOSE, FASTING 96 MG/DL (70-100); HDL CHOLESTEROL 66 MG/DL (>40); LDL CHOLESTEROL 65 MG/DL (<100); NON-HDL-C 95 MG/DL; POTASSIUM SERUM 4.2 MEQ/L (3.5-5.1); SODIUM LEVEL 138 MEQ/L (136-145); THYROID STIMULATING HORMONE 0.976 uIU/ML (0.358-3.740); TOTAL PROTEIN 7.3 GM/DL (6.4-8.2); TRIGLYCERIDES LEVEL 148 MG/DL (<150)
[2022-03-07 16:46] LABS: MALB URINE SIEMENS 15.8 MG/L
[2022-03-07 16:56] LABS: HEMOGLOBIN A1c 5.5 %
[2022-03-07 17:07] LABS: TOTAL 25(OH) VITAMIN D 19.8 NG/ML (30.0-100.0)
== END ==
LOC: M SFHCCLAY 09:35
PROVIDERS: ATTEND Nurse Practitioner Family
DX: E78.5 Hyperlipidemia, unspecified (principal); T40.2X5A Adverse effect of other opioids, initial encounter; K21.9 Gastro-esophageal reflux disease without esophagitis; M06.9 Rheumatoid arthritis, unspecified; G47.33 Obstructive sleep apnea (adult) (pediatric); M80.00XA Age-related osteoporosis with current pathological fracture, unspecified site, initial encounter for fracture; I11.9 Hypertensive heart disease without heart failure; M79.7 Fibromyalgia; G45.9 Transient cerebral ischemic attack, unspecified; K59.03 Drug induced constipation

== ENCOUNTER → 2022-04-23 | Outpatient (CLI) | payer MEDICARE ==
[~2022-04-23] MED LIST changes: +NALO12.5 PO; +XELJ11TA PO
== END ==
LOC: M LABSMTC 09:46
PROVIDERS: ATTEND Anesthesiology
DX: Z01.818 Encounter for other preprocedural examination (principal); Z11.52 Encounter for screening for COVID-19

== ENCOUNTER 2022-04-26 07:21 | Day surgery (SDC) | payer MEDICARE ==
[~2022-04-26] VITALS: Ht 154.9 cm; Wt 84.8 kg
[~2022-04-26 07:21] MED LIST changes: +NS 1,000 ML IV ONE
[2022-04-26] MEDS ORDERED: LIDOCAINE 2% 100MG/5ML SDV (FOR ANES.) As Ordered ONE (07:48)
[2022-04-26] MEDS ORDERED: propofoL 200 MG/20 ML VIAL As Ordered ONE (07:48)
[2022-04-26 09:40] VITALS: BP 170/80
== END 2022-04-26 09:52 | disposition home or self-care (01) ==
LOC: M OPP 07:21
PROVIDERS: ATTEND Surgery
DX: Z86.010 Personal history of colon polyps (principal); D12.4 Benign neoplasm of descending colon; K64.9 Unspecified hemorrhoids; Z79.02 Long term (current) use of antithrombotics/antiplatelets; Z79.891 Long term (current) use of opiate analgesic; Z79.899 Other long term (current) drug therapy; G47.30 Sleep apnea, unspecified; I10 Essential (primary) hypertension; E78.00 Pure hypercholesterolemia, unspecified; M81.0 Age-related osteoporosis without current pathological fracture; M10.9 Gout, unspecified; F41.9 Anxiety disorder, unspecified; Z86.73 Personal history of transient ischemic attack (TIA), and cerebral infarction without residual deficits

== ENCOUNTER → 2022-06-29 | Outpatient (CLI) | payer MEDICARE ==
[~2022-06-29] MED LIST changes: -NS 1,000 ML IV ONE
== END ==
LOC: M WHC 13:42
PROVIDERS: ATTEND Nurse Practitioner Family
DX: M81.0 Age-related osteoporosis without current pathological fracture (principal)

== ENCOUNTER 2022-09-25 14:45 | Emergency (ER) | payer MEDICARE ==
[~2022-09-25] VITALS: Ht 30.5 cm; Wt 90.9 kg
[2022-09-25 15:17] LABS: BASO % 0.4 % (0.0-1.0); EOS % 0.3 % (0.0-3.0); HEMATOCRIT 44.6 % (36.0-47.0); HEMOGLOBIN 14.2 g/dl (12.0-15.5); LYMPH # 2.2 10^3/uL (1.5-5.0); LYMPH % 21.2 % (24.0-44.0); MEAN CORPUSCULAR HEMOGLOBIN 30.1 pg (27.0-33.0); MEAN CORPUSCULAR HGB CONC 31.8 g/dl (32.0-36.5); MEAN CORPUSCULAR VOLUME 94.5 fl (80.0-96.0); MONO # 0.6 10^3/uL (0.0-0.8); MONO % 5.5 % (2.0-8.0); NEUTROPHILS # 7.3 10^3/uL (1.5-8.5); NEUTROPHILS % 72.2 % (36.0-66.0); PLATELET COUNT, AUTOMATED 213 10^3/uL (150-450); RED BLOOD COUNT 4.72 10^6/uL (4.00-5.40); WHITE BLOOD COUNT 10.1 10^3/uL (4.0-10.0)
[2022-09-25] MEDS ORDERED: ISOVUE-370 76% 100ML VIAL As Ordered ONE (15:37)
[2022-09-25 16:31] VITALS: BP 143/67
[2022-09-25] MEDS ORDERED: MECLIZINE 25 MG TABLET PO ONE (16:45)
[2022-09-25 20:52] VITALS: O2SAT 99
[2022-09-25] MEDS ORDERED: MECL1TAB31 PO (21:09)
[2022-09-25 21:45] VITALS: BP 145/77
== END 2022-09-25 22:00 | disposition home or self-care (01) ==
LOC: M ED 14:45
DX: R42 Dizziness and giddiness (principal); M79.7 Fibromyalgia; K58.9 Irritable bowel syndrome, unspecified; I10 Essential (primary) hypertension; Z86.73 Personal history of transient ischemic attack (TIA), and cerebral infarction without residual deficits; Z87.891 Personal history of nicotine dependence; M13.80 Other specified arthritis, unspecified site; Z90.49 Acquired absence of other specified parts of digestive tract; Z88.5 Allergy status to narcotic agent; Z88.6 Allergy status to analgesic agent; Z79.899 Other long term (current) drug therapy
CPT/HCPCS: 36415; 70450; 70496; 70498; 70544; 70551; 71046; 80047; 84484; 85025; 93005; 93041; 94760; 99285; Q9967

== ENCOUNTER → 2023-07-18 | Outpatient (REF) | payer OTHER ==
[~2023-07-18] MED LIST changes: +MECL-209 PO
[2023-07-18 18:45] LABS: BASO # 0.1 10^3/uL (0.0-0.2); BASO % 0.7 % (0.0-1.0); EOS % 0.4 % (0.0-3.0); HEMATOCRIT 46.5 % (36.0-47.0); HEMOGLOBIN 14.4 g/dl (12.0-15.5); LYMPH # 2.4 10^3/uL (1.5-5.0); LYMPH % 35.5 % (24.0-44.0); MEAN CORPUSCULAR HEMOGLOBIN 29.6 pg (27.0-33.0); MEAN CORPUSCULAR VOLUME 95.7 fl (80.0-96.0); MONO # 0.5 10^3/uL (0.0-0.8); MONO % 7.4 % (2.0-8.0); NEUTROPHILS # 3.8 10^3/uL (1.5-8.5); NEUTROPHILS % 55.9 % (36.0-66.0); PLATELET COUNT, AUTOMATED 222 10^3/uL (150-450); RED BLOOD COUNT 4.86 10^6/uL (4.00-5.40); WHITE BLOOD COUNT 6.7 10^3/uL (4.0-10.0)
[2023-07-18 19:12] LABS: FREE T4 0.93 NG/DL (0.89-1.76); THYROID STIMULATING HORMONE 0.936 uIU/ML (0.55-4.78)
[2023-07-18 19:13] LABS: ALBUMIN 3.6 G/DL (3.2-5.2); ALKALINE PHOSPHATASE 118 U/L (46-116); ALT/SGPT 13 U/L (7.0-40); AST/SGOT 15 U/L (<34); BILIRUBIN,TOTAL 0.7 MG/DL (0.3-1.2); BLOOD UREA NITROGEN 11 MG/DL (9-23); CALCIUM LEVEL 8.8 MG/DL (8.3-10.6); CARBON DIOXIDE LEVEL 31 MMOL/L (20-31); CHLORIDE LEVEL 106 MMOL/L (98-107); CHOLESTEROL LEVEL 251 MG/DL (<200); CHOLESTEROL RISK RATIO 4.66 (<5); CREATININE FOR GFR 0.86 MG/DL (0.55-1.30); GLOMERULAR FILTRATION RATE > 60.0 (>45); GLUCOSE, FASTING 77 MG/DL (74-106); HDL CHOLESTEROL 53.8 MG/DL (>40); LDL CHOLESTEROL 163.2 MG/DL (<100); NON-HDL-C 197.2 MG/DL; POTASSIUM SERUM 4.6 MMOL/L (3.5-5.1); SODIUM LEVEL 142 MMOL/L (136-145); TRIGLYCERIDES LEVEL 170 MG/DL (<150)
[2023-07-18 20:00] LABS: HEMOGLOBIN A1c 5.1 % (4.0-6.0)
== END ==
LOC: M SFHCCLAY 11:31
PROVIDERS: ATTEND Nurse Practitioner Family
DX: I10 Essential (primary) hypertension (principal); E78.5 Hyperlipidemia, unspecified; K59.00 Constipation, unspecified; K21.9 Gastro-esophageal reflux disease without esophagitis; M06.9 Rheumatoid arthritis, unspecified; R73.01 Impaired fasting glucose; Z98.84 Bariatric surgery status

== ENCOUNTER → 2024-07-28 | Outpatient (CLI) | payer MEDICARE, OTHER ==
[~2024-07-28] MED LIST changes: +GABA-1490 PO; -GABA600T4 PO
== END ==
LOC: M CLY 14:01
PROVIDERS: ATTEND Nurse Practitioner Family
DX: R09.89 Other specified symptoms and signs involving the circulatory and respiratory systems (principal)

== ENCOUNTER → 2024-07-30 | Outpatient (CLI) | payer MEDICARE ==
[2024-07-30 15:12] LABS: FOLATE > 24.0 NG/ML (>5.4)
[2024-07-30 15:13] LABS: VITAMIN B12 LEVEL 517 PG/ML (211-911)
== END ==
LOC: M LAB 13:04
PROVIDERS: ATTEND Psychiatry & Neurology Neurology
DX: E53.8 Deficiency of other specified B group vitamins (principal); R41.3 Other amnesia

== ENCOUNTER → 2024-08-08 | Outpatient (CLI) | payer MEDICARE | LOC: M CLY 14:29 | PROVIDERS: ATTEND Nurse Practitioner Family | DX: J10.00 Influenza due to other identified influenza virus with unspecified type of pneumonia (principal) ==

== ENCOUNTER → 2024-09-08 | Outpatient (REF) | payer MEDICARE ==
[2024-09-08 16:54] LABS: BASO # 0.1 10^3/uL (0.0-0.2); BASO % 0.7 % (0.0-1.0); EOS # 0.1 10^3/uL (0.0-0.5); EOS % 0.7 % (0.0-3.0); HEMATOCRIT 41.9 % (36.0-47.0); HEMOGLOBIN 12.9 g/dl (12.0-15.5); LYMPH # 2.7 10^3/uL (1.5-5.0); LYMPH % 37.8 % (24.0-44.0); MEAN CORPUSCULAR HEMOGLOBIN 29.3 pg (27.0-33.0); MEAN CORPUSCULAR HGB CONC 30.8 g/dl (32.0-36.5); MEAN CORPUSCULAR VOLUME 95.2 fl (80.0-96.0); MONO # 0.6 10^3/uL (0.0-0.8); MONO % 8.2 % (2.0-8.0); NEUTROPHILS # 3.8 10^3/uL (1.5-8.5); NEUTROPHILS % 52.5 % (36.0-66.0); PLATELET COUNT, AUTOMATED 208 10^3/uL (150-450); WHITE BLOOD COUNT 7.2 10^3/uL (4.0-10.0)
[2024-09-08 17:00] LABS: ALBUMIN 3.3 G/DL (3.2-5.2); ALKALINE PHOSPHATASE 100 U/L (35-104); ALT/SGPT 18 U/L (7.0-40); AST/SGOT 17 U/L (<34); BILIRUBIN,TOTAL 0.5 MG/DL (0.3-1.2); BLOOD UREA NITROGEN 13 MG/DL (9-23); CALCIUM LEVEL 8.9 MG/DL (8.3-10.6); CARBON DIOXIDE LEVEL 31 MMOL/L (20-31); CHLORIDE LEVEL 104 MMOL/L (98-107); CHOLESTEROL LEVEL 216 MG/DL (<200); CHOLESTEROL RISK RATIO 4.33 (<5); CREATININE FOR GFR 0.84 MG/DL (0.55-1.30); FOLATE > 24.00 NG/ML (>5.4); GLOMERULAR FILTRATION RATE > 60.0 (>45); GLUCOSE, FASTING 114 MG/DL (74-106); HDL CHOLESTEROL 49.8 MG/DL (>40); LDL CHOLESTEROL 126.4 MG/DL (<100); MAGNESIUM LEVEL 2.1 MG/DL (1.8-2.4); NON-HDL-C 166.2 MG/DL; POTASSIUM SERUM 4.4 MMOL/L (3.5-5.1); SODIUM LEVEL 141 MMOL/L (136-145); TRIGLYCERIDES LEVEL 199 MG/DL (<150); VITAMIN B12 LEVEL 396 PG/ML (211-911)
[2024-09-08 17:01] LABS: THYROID STIMULATING HORMONE 1.359 uIU/ML (0.55-4.78); TOTAL 25(OH) VITAMIN D 21.4 NG/ML (20.0-100.0)
[2024-09-08 17:02] LABS: FERRITIN 10.3 NG/ML (7.3-270.7); FREE T4 0.94 NG/DL (0.89-1.76)
[2024-09-08 17:04] LABS: HEMOGLOBIN A1c 4.6 % (4.0-6.0)
== END ==
LOC: M SFHCCLAY 11:04
PROVIDERS: ATTEND Nurse Practitioner Family
DX: Z98.84 Bariatric surgery status (principal); E78.5 Hyperlipidemia, unspecified; K21.9 Gastro-esophageal reflux disease without esophagitis; M06.9 Rheumatoid arthritis, unspecified; R73.01 Impaired fasting glucose; G47.33 Obstructive sleep apnea (adult) (pediatric); M80.00XA Age-related osteoporosis with current pathological fracture, unspecified site, initial encounter for fracture; I11.9 Hypertensive heart disease without heart failure; M79.7 Fibromyalgia; G45.9 Transient cerebral ischemic attack, unspecified; K59.03 Drug induced constipation; T40.2X5A Adverse effect of other opioids, initial encounter; Z79.899 Other long term (current) drug therapy